=== PATIENT | female | born 1995 | race Caucasian/White ===

== ENCOUNTER 2017-12-09 19:51 | Emergency (ER) | payer MEDICAID ==
[~2017-12-09] VITALS: Ht 165.1 cm; Wt 96.2 kg
[2017-12-09 20:24] VITALS: Ht 165.1 cm; Wt 96.2 kg
[2017-12-09 22:09] LABS: microscopic required? YES; urine erythrocyte 1+ (NEGATIVE)
[2017-12-10 00:25] VITALS: BP 122/75
== END 2017-12-10 00:25 | disposition home or self-care (01) ==
LOC: ED 19:51
PROVIDERS: Emergency Medicine
DX: N39.0 Urinary tract infection, site not specified (principal); Z88.0 Allergy status to penicillin
CPT/HCPCS: Q0177